=== PATIENT | male | born 1965 | race Caucasian/White ===

== ENCOUNTER 2022-06-25 14:48 | Emergency (ER) | payer OTHER ==
[~2022-06-25] VITALS: Ht 177 cm; Wt 80.0 kg
--- NOTE | 2022-06-25 15:13 | ED Upper Extremity ---
General Chief Complaint: Upper Extremity Stated Complaint: FINGER INJURY Nursing Triage Note: Patient has ambulated to ER 1 with cc of finger injury from a press at work. He has 1 st and 2nd left hand finger injury. Source: patient Exam Limitations: no limitations History of Present Illness Date Seen by Provider: Jun 25, 2022 Time Seen by Provider: 14:50 Initial Comments 56yoM that is right hand dominant coming in after a work-related injury. He was working on a press the put holes in 2 materials, his left hand got stuck in it and his index and long finger were pulled into the machine crushing them and pulling his fingers into them. He is having constant, severe, throbbing pain, worse with moving it, better with rest. This happened shortly prior to arrival. He does not take any blood thinners. He has not had anything for pain as of yet. He is otherwise denying any other acute complaints. Allergies and Home Medications Allergies Coded Allergies: No Known Drug Allergies (Unverified , 06/25/22) Patient Home Medication List Home Medication List Reviewed: Yes Cephalexin (Cephalexin) 500 Mg Tablet, 500 MG PO QID Prescribed by: ADAM POLK on 06/25/22 1604 Hydrocodone/Acetaminophen (Hydrocodone-Acetamin 5-325 mg) 5 Mg-325 Mg Tablet, 1 TAB PO Q6H PRN for PAIN-SEVERE (8-10) Prescribed by: ADAM POLK on 06/25/22 1605 Review of Systems Constitutional: no symptoms reported EENTM: no symptoms reported Respiratory: no symptoms reported Cardiovascular: no symptoms reported Gastrointestinal: no symptoms reported Genitourinary: no symptoms reported Musculoskeletal: see HPI Skin: no symptoms reported Psychiatric/Neurological: No Symptoms Reported All Other Systems Reviewed Negative Unless Noted: Yes Past Wpcrwnv-Xikjpw-Ddcjmf Hx Patient Social History Tobacco Use?: Yes Past Medical History Surgeries: Yes Orthopedic Physical Exam Vital Signs Vital Signs - First Documented 06/25/22 15:04 Temp 36.0 Pulse 76 Resp 20 B/P (MAP) 108/74 (85) Pulse Ox 95 O2 Delivery Room Air Capillary Refill : Height, Weight, BMI Height: '" Weight: lbs. oz. kg; BMI Method: General Appearance: WD/WN, no apparent distress HEENT: PERRL/EOMI, normal ENT inspection, pharynx normal Neck: non-tender, full range of motion, supple, normal inspection Cardiovascular: regular rate, rhythm, no edema, no murmur Respiratory: chest non-tender, lungs clear, normal breath sounds, no respiratory distress, no accessory muscle use Gastrointestinal: normal bowel sounds, non tender, soft; No distended, No guarding, No rebound Back: normal inspection Shoulder: normal inspection Elbow/Forearm: normal inspection Wrist: Yes normal inspection Hand: Left (Large lacerations with obvious bony deformities to the left index finger and middle finger. Lacerations over the DIP joints on the flexor surface s, decreased capillary refill in the fingers are pale distal to the injury initially (improved after straightening fingers), he does have some sensation distal to it but it is decreased, worse so on the index finger) Neurologic/Tendon: sensory deficit, tendon function deficit (cannot fully extend left middle finger at DIP joint, able to flex both fingers without issue) Neurologic/Psychiatric: alert, normal mood/affect Skin: normal color, warm/dry Lymphatic: no adenopathy Procedures/Interventions Wound Location: Upper Extremities (left index finger and middle finger) Wound's Depth, Shape: tendon Wound Explored: clean Irrigated w/ Saline (ccs): 1000 Anesthesia: 1% Lidocaine Volume Anesthetic (ccs): 10 Suture: Ethlion Suture Size: 4-0 Progress Chlorhexidine used to clean skin and digital blocks performed on both the left index and middle finger. 5 cc of 1% lidocaine were used for each 1. Anesthesia was achieved for both. wound 1- left index finger, 4 cm long, tendon visible but intact on flexor surface, 8 sutures placed, decreased sensation distal before procedure. Good capillary refill after wound 2- left middle finger, 4.5 cm long, tendon visible but intact on flexor surface, unable to fully extend this finger but not able to visualize the extensor tendon, decreased sensation distal to injury prior to procedure, 9 sutures placed. Good capillary refill after. Progress/Results/Core Measures Results/Orders My Orders Orders - ADAM POLK MD Hand 3 View Left (06/25/22 15:05) Hydrocodone/Apap 5/325 Tablet (Lortab 5 (06/25/22 16:00) Cephalexin Capsule (Keflex Capsule) (06/25/22 15:57) Medications Given in ED Current Medications Medications Dose Ordered Sig/Roselyn Route Start Time Stop Time Status Last Admin Dose Admin Acetaminophen/ Hydrocodone Bitart 1 ea ONCE ONCE PO 06/25/22 16:00 06/25/22 16:01 DC 06/25/22 15:54 1 EA Vital Signs/I&O 06/25/22 06/25/22 15:04 16:30 Temp 36.0 36.3 Pulse 76 81 Resp 20 18 B/P (MAP) 108/74 (85) 133/72 Pulse Ox 95 97 O2 Delivery Room Air Room Air Progress Progress Note : Progress Note 56yoM with above history coming in due to a crush injury to his left hand. Lacerations to the left index and middle finger along the flexor surface extending around the ulnar sides onto the extensor surfaces. He has an extensor finger lag on the left middle finger where he is not able to fully extend at the DIP joint, suspect extensor tendon injury. He is able to flex even at the DIP joints, and I am able to visualize the flexor tendons which were intact. His tetanus shot is up-to-date. Digital blocks were performed and the wounds were sutured. X-rays with obvious fractures. The x-rays were sent to [facility] for consultation with a hand surgeon. Discussed the case with Dr. Austin. Given that the patient has distal perfusion and his fingers do not appear ischemic, he believes it is okay to wait to be seen within the next 7 days. Patient was sent home after splinting them with aluminum splints. He was given prescription for antibiotics. I believe he is stable for discharge with outpatient follow-up. He was sent home with strict return precautions Diagnostic Imaging Diagonstic Imaging: Xray (left hand) Comments [facility] [place], [place] NAME: [facility]RISTIAN S[facility]ASTUME [facility] REC#: [id number] PT STATUS: REG ER : 1965 PHYSICIAN: ADAM POLK MD ADMIT DATE: 06/25/22/ER FS Draft Date of Exam:06/25/22 HAND 3 VIEW LEFT INDICATION: Crush injury. FINDINGS: Exam confirms the presence of horizontal fractures of the mid to distal third of the middle phalanges of the third and fourth fingers. No appreciable articular involvement. The distal fragments showed radial displacement but no fragmental overlap. IMPRESSION: 1. Displaced extra-articular fractures involve the distal third of the middle phalanges of the third and fourth fingers. 2. No retained opaque foreign body, and no convincing articular extension. Dictated on workstation # [id number] Dict: 06/25/22 1541 Trans: 06/25/22 1549 [phone] Interpreted by: DAMASO LYLE Electronically signed by: Departure Impression Primary Impression: Hand crush injury Qualified Codes: S67.22XA - Crushing injury of left hand, initial encounter Additional Impression: Finger laceration Qualified Codes: S61.211A - Laceration without foreign body of left index finger without damage to nail, initial encounter Disposition: HOME, SELF-CARE Condition: Stable Departure-Patient Inst. Decision time for Depature: 16:39 Patient Instructions: Laceration Repair With Stitches ED Add. Discharge Instructions: The stitches need to come out in 7 to 10 days. I do want you to follow-up with a hand surgeon as soon as possible. Antibiotics and pain medicines were sent to your pharmacy. If you have any redness spreading up your skin, pus coming out, or new fever with it, then I would want you to be seen by doctor. Hand surgeon options: Iveth Dill: Dr. Garcia- [phone], [address] [facility] [address], [place] [address] [facility]: [phone], [address] [facility], [address]: [phone] Scripts Hydrocodone/Acetaminophen (Hydrocodone-Acetamin 5-325 mg) 5 Mg-325 Mg Tablet 1 TAB PO Q6H PRN for PAIN-SEVERE (8-10) for 4 Days, #16 TAB Prov: ADAM POLK MD 06/25/22 Cephalexin (Cephalexin) 500 Mg Tablet 500 MG PO QID for 7 Days, #28 TAB 0 Refills Prov: ADAM POLK MD 06/25/22 Work/School Note: Work Release Form Date Seen in the Emergency Department: Jun 25, 2022 Return to Work: Jun 27, 2022 Restrictions: Need Release from Doctor ADAM POLK MD Jun 25, 2022 15:13
--- NOTE | 2022-06-25 15:49 | Diagnostic Imaging Report ---
INDICATION: Crush injury. FINDINGS: Exam confirms the presence of horizontal fractures of the mid to distal third of the middle phalanges of the third and fourth fingers. No appreciable articular involvement. The distal fragments showed radial displacement but no fragmental overlap. IMPRESSION: 1. Displaced extra-articular fractures involve the distal third of the middle phalanges of the third and fourth fingers. 2. No retained opaque foreign body, and no convincing articular extension. Dictated by: Dictated on workstation # [id number]
[2022-06-25] MEDS ORDERED: CEPHALEXIN 250 MG (KEFLEX) CAP PO STA (15:57)
[2022-06-25] MEDS ORDERED: HYDROcodone/APAP 5 MG/325 MG (LORTAB) TAB PO ONE (16:00)
[2022-06-25] MEDS ORDERED: ACHD5005 PO (16:04)
[2022-06-25] MEDS ORDERED: CEPH500T PO (16:04)
[2022-06-25 16:30] VITALS: BP 133/72
== END 2022-06-25 16:30 | disposition home or self-care (01) ==
LOC: ER FS 14:50
DX: S62.623A Displaced fracture of middle phalanx of left middle finger, initial encounter for closed fracture (principal); S62.625A Displaced fracture of middle phalanx of left ring finger, initial encounter for closed fracture; S61.211A Laceration without foreign body of left index finger without damage to nail, initial encounter; S61.213A Laceration without foreign body of left middle finger without damage to nail, initial encounter; W23.1XXA Caught, crushed, jammed, or pinched between stationary objects, initial encounter; Y99.0 Civilian activity done for income or pay
CPT/HCPCS: 73130

== ENCOUNTER 2022-07-01 14:11 | Emergency (ER) | payer OTHER ==
[~2022-07-01] VITALS: Ht 177.8 cm; Wt 79.7 kg
[~2022-07-01 14:11] MED LIST: ACHD5005 PO; CEPH500T PO
[2022-07-01 14:35] VITALS: BP 134/106
--- NOTE | 2022-07-01 14:49 | ED Upper Extremity ---
General Chief Complaint: Upper Extremity Stated Complaint: LEFT HAND PAIN, TINGLING History of Present Illness Date Seen by Provider: Jul 01, 2022 Time Seen by Provider: 14:47 Initial Comments 56-year-old male here for continued pain in his left hand. He is his index and middle finger he had an injury about a week ago on Saturday. He had the tips hit crushed and fractured distal phalanges along with the lacerations. He was in and saw Dr. Pendleton in the ER. Patient had the wound cleaned out and the lacerations fixed in the Ortho that was notified recommended splinting along with antibiotics and follow-up in a week. He was unable to follow-up as the orthopedic hand surgeon that they recommended was out of the network for the Worker's Comp. so he has not been seen. He now he is having some numbness in the distal aspect of the fingers. Good capillary refill. But numbness and electrical shocks. Still having pain. He went through his hydrocodone taking 2 at a time. Onset: last week Pain/Injury Location: left 2nd finger, left 3rd finger Method of Injury: direct blow Allergies and Home Medications Allergies Coded Allergies: No Known Drug Allergies (Unverified , 06/25/22) Patient Home Medication List Home Medication List Reviewed: Yes Cephalexin (Cephalexin) 500 Mg Tablet, 500 MG PO QID Prescribed by: ADAM POLK on 06/25/22 1604 Hydrocodone/Acetaminophen (Hydrocodone-Acetamin 5-325 mg) 5 Mg-325 Mg Tablet, 1 TAB PO Q6H PRN for PAIN-SEVERE (8-10) Prescribed by: ADAM POLK on 06/25/22 1605 Oxycodone HCl/Acetaminophen (Percocet 5-325 mg Tablet) 5 Mg-325 Mg Tablet, 1 TAB PO Q6H PRN for PAIN-MODERATE Prescribed by: Osmel Avalos on 07/01/22 1648 Review of Systems Constitutional: see HPI Past Tpqkddx-Fjmnyx-Yfrhtl Hx Patient Social History Tobacco Use?: No Past Medical History Surgeries: Yes Orthopedic Physical Exam Vital Signs Vital Signs - First Documented 07/01/22 14:35 Temp 36.4 Pulse 112 Resp 18 B/P (MAP) 134/106 (115) Pulse Ox 97 O2 Delivery Room Air Capillary Refill : Height, Weight, BMI Height: '" Weight: lbs. oz. kg; 25.00 BMI Method: General Appearance: WD/WN, no apparent distress Hand: Left, deformity, laceration (sutures in place), limited ROM, stiffness, swelling Procedures/Interventions Suture Size: 4-0 Progress/Results/Core Measures Results/Orders My Orders Orders - OSMEL AVALOS MD Hand 3 View Left (07/01/22 16:10) Hydrocodone/Apap 10/325 Tablet (Lortab 1 (07/01/22 16:15) Medications Given in ED Current Medications Medications Dose Ordered Sig/Roselyn Route Start Time Stop Time Status Last Admin Dose Admin Acetaminophen/ Hydrocodone Bitart 1 ea ONCE ONCE PO 07/01/22 16:15 07/01/22 16:16 DC 07/01/22 16:21 1 EA Vital Signs/I&O 07/01/22 14:35 Temp 36.4 Pulse 112 Resp 18 B/P (MAP) 134/106 (115) Pulse Ox 97 O2 Delivery Room Air Progress Progress Note : Time: 16:42 Progress Note Patient is doing a little bit better on the meds. We will resend pain meds. Will place referral for patient to go see [facility] orthopedic hand surgeon this week. His fingers are still fractured and out of alignment. He will need to be seen by Ortho. Diagnostic Imaging Diagonstic Imaging: Xray Plain Films/CT/US/NM/MRI: hand Comments [place], [place] NAME: CHRISTIAN SAGASTUME [facility] REC#: [id number] PT STATUS: REG ER : 1965 PHYSICIAN: OSMEL AVALOS MD ADMIT DATE: 07/01/22/ER FS Signed Date of Exam:07/01/22 HAND 3 VIEW LEFT CLINICAL HISTORY: Crush injury. Left hand pain and numbness. COMPARISON: 06/25/2022. TECHNIQUE: 3 views of the left hand. FINDINGS: Fractures of the middle phalanges of the left 2nd and 3rd digits is again seen with interval improved alignment likely due to closed reduction. There remains a small amount of radial subluxation of the more distal fracture fragments. No new fracture is seen in the left hand. IMPRESSION: 1. Fractures involving the middle phalanges of the left 2nd and 3rd digits. There is improved alignment compared to the prior exam likely due to prior closed reduction. No new fracture is seen. Dictated by: Dictated on workstation # [id number] Dict: 07/01/22 1628 Trans: 07/01/22 [address] [facility] [id number] Interpreted by: ROSALIA RAMÍREZ DO Electronically signed by: ROSALIA RAMÍREZ DO 07/01/22 1633 Departure Impression Primary Impression: Finger laceration Qualified Codes: S61.311D - Laceration without foreign body of left index finger with damage to nail, subsequent encounter Additional Impression: Fracture of phalanx of hand Qualified Codes: S62.609D - Fracture of unspecified phalanx of unspecified finger, subsequent encounter for fracture with routine healing Disposition: HOME, SELF-CARE Condition: Stable Departure-Patient Inst. Referrals: GWYN MAYER DO Occupational Health Hand Surgeon [phone] call for appointment NO,LOCAL PHYSICIAN (PCP) Primary Care Physician Patient Instructions: Finger Fracture (DC) Add. Discharge Instructions: Continue antibiotic and continue pain meds. Will refer to Dr. Gwyn Mayer or [facility] orthopedics. Call [phone] for appointment in the morning. ER if redness is worse All discharge instructions reviewed with patient and/or family. Voiced understanding. Scripts Oxycodone HCl/Acetaminophen (Percocet 5-325 mg Tablet) 5 Mg-325 Mg Tablet 1 TAB PO Q6H PRN for PAIN-MODERATE MDD 6 for 7 Days, #30 TAB 0 Refills Prov: OSMEL AVALOS MD 07/01/22 Work/School Note: Family Work Note Patient Received Medical Care In the Emergency Department On: Jul 01, 2022 Patient Will Be Able to Return to Work/School On: Jul 09, 2022 Patient Restrictions: unable to use left hand for work. OSMEL AVALOS MD Jul 01, 2022 14:49
--- NOTE | 2022-07-01 16:33 | Diagnostic Imaging Report ---
CLINICAL HISTORY: Crush injury. Left hand pain and numbness. COMPARISON: 06/25/2022. TECHNIQUE: 3 views of the left hand. FINDINGS: Fractures of the middle phalanges of the left 2nd and 3rd digits is again seen with interval improved alignment likely due to closed reduction. There remains a small amount of radial subluxation of the more distal fracture fragments. No new fracture is seen in the left hand. IMPRESSION: 1. Fractures involving the middle phalanges of the left 2nd and 3rd digits. There is improved alignment compared to the prior exam likely due to prior closed reduction. No new fracture is seen. Dictated by: Dictated on workstation # [id number]
[2022-07-01] MEDS ORDERED: OXYC-199 PO (16:47)
== END 2022-07-01 16:54 | disposition home or self-care (01) ==
LOC: EDUNIT# 14:11 → ER FS 14:12
DX: S62.621A Displaced fracture of middle phalanx of left index finger, initial encounter for closed fracture (principal); S62.623A Displaced fracture of middle phalanx of left middle finger, initial encounter for closed fracture; X58.XXXA Exposure to other specified factors, initial encounter
CPT/HCPCS: 73130